=== PATIENT | male | born 1995 | race Asian ===

== ENCOUNTER 2021-08-26 12:11 | Emergency (ER) | payer OTHER ==
[~2021-08-26] VITALS: Ht 180.3 cm; Wt 106.6 kg
[2021-08-26 13:00] VITALS: BP 156/78; TEMP 97.3
== END 2021-08-26 13:00 | disposition home or self-care (01) ==
LOC: ED 12:11
DX: S39.012A Strain of muscle, fascia and tendon of lower back, initial encounter (principal); V89.2XXA Person injured in unspecified motor-vehicle accident, traffic, initial encounter; Y92.89 Other specified places as the place of occurrence of the external cause
CPT/HCPCS: 99281